=== PATIENT | female | born 1965 | race American Indian/Alaskan Native ===

== ENCOUNTER 2018-08-14 20:25 | Emergency (ER) | payer SELFPAY | END 2018-08-14 21:18 | LOC: ED 20:25 | DX: R05 Cough (principal); Z53.21 Procedure and treatment not carried out due to patient leaving prior to being seen by health care provider ==

== ENCOUNTER 2020-01-24 21:09 | Emergency (ER) | payer SELFPAY ==
[2020-01-24] MEDS ORDERED: ASPIRIN 325 MG TAB PO ONE (21:34)
--- NOTE | 2020-01-24 22:15 | XRay Report ---
CHEST 2 VIEWS INDICATION / CLINICAL INFORMATION: Chest pain and weakness 3 days. COMPARISON: None available. FINDINGS: SUPPORT DEVICES: None. HEART / MEDIASTINUM: Enlarged. LUNGS / PLEURA: No significant pulmonary or pleural abnormality. No pneumothorax. ADDITIONAL FINDINGS: No significant additional findings. IMPRESSION: 1. Cardiomegaly without CHF Signer Name: Moris Retana MD Signed: 01/24/2020 10:11 PM Workstation Name: [id number]
[2020-01-24 22:44] LABS: Basophils # (Auto) 0.1 K/mm3 (0.0-0.1); Eosinophils # (Auto) 0.3 K/mm3 (0.0-0.4); Hematocrit 31.3 % (30.3-42.9); Hemoglobin 10.6 gm/dl (10.1-14.3); Lymphocytes % (Auto) 35.1 % (13.4-35.0); Mean Corpuscular HGB Conc 34 % (30-34); Mean Corpuscular Volume 71 fl (79-97); Monocytes # (Auto) 0.4 K/mm3 (0.0-0.8); Monocytes % (Auto) 7.1 % (0.0-7.3); Platelet Count 239 K/mm3 (140-440); Red Cell Distribution Width 15.5 % (13.2-15.2)
[2020-01-24 23:09] LABS: BUN/Creatinine Ratio 10; Blood Urea Nitrogen 14 mg/dL (7-17); Calcium 9.4 mg/dL (8.4-10.2); Hemolysis Index 2
[2020-01-25] MEDS ORDERED: ASPIRIN 325 MG TAB ONE (01:33)
--- NOTE | 2020-01-25 01:47 | Emergency Department Report ---
ED Chest Pain HPI - General Chief Complaint: Chest Pain Stated Complaint: WEAKNESS Time Seen by Provider: 01/25/20 01:30 Source: patient, EMS Mode of arrival: Ambulatory Limitations: No Limitations - History of Present Illness Initial Comments: 54-year-old female with history of hypertension and diabetes, presents to ED with complaint of headache, elevated blood pressure, chest pain, and abdominal pain. Patient states her abdominal pain began 3 to 4 days ago. States pain is located diffusely, denies any vomiting or diarrhea. Patient states blood pressure has been elevated over the last few days despite taking her usual lisinopril and another medication that she does not know the name of. Patient reports associated headache. Patient also reports chest pain x 3 days. States it is located in the center of her chest, feels like tightness. Patient states pain has been constant. She denies any shortness of breath, fever, cough. MD Complaint: chest pain -: days(s) (3) Onset: during rest Pain Location: substernal Pain Radiation: none Severity: mild Severity scale (0 -10): 3 Quality: tightness Consistency: constant Improves With: nothing Worsens With: nothing re: denies: nausea, vomting, diaphoresis, dyspnea Other Symptoms: denies: cough, fever - Related Data Previous Rx's Medication Instructions Recorded Last Taken Type Diphenoxylate HCl/Atropine 1 each PO BID #8 tablet 08/15/18 Unknown Rx [Lomotil 2.5-0.025 mg Tablet] Ondansetron [Zofran ODT TAB] 8 mg PO Q12HR #14 tab.rapdis 08/15/18 Unknown Rx Naproxen [Naprosyn] 500 mg PO BID #20 tablet 01/25/20 Unknown Rx Nitrofurantoin Dickenson/M-Cryst 100 mg PO Q12HR 7 Days #14 capsule 01/25/20 Unknown Rx [Macrobid CAP] Allergies Allergy/AdvReac Type Severity Reaction Status Date / Time acetaminophen [From [place]] Allergy Rash Verified 01/24/20 21:31 hydrocodone [From [place]] Allergy Rash Verified 01/24/20 21:31 Heart Score - HEART Score History: Slightly suspicious EKG: Non-specific Age: 45-65 Risk factors: 1-2 risk factors Troponin: < normal limit HEART Score: 3 ED Review of Systems ROS: Stated complaint: WEAKNESS Other details as noted in HPI Comment: All other systems reviewed and negative Constitutional: denies: chills, fever Respiratory: denies: cough, shortness of breath Cardiovascular: chest pain Gastrointestinal: abdominal pain. denies: nausea, vomiting, diarrhea Neurological: headache ED Past Medical Hx - Past Medical History Hx Hypertension: Yes Hx Diabetes: Yes - Social History Smoking Status: Never Smoker Substance Use Type: None - Medications Home Medications: Home Medications Medication Instructions Recorded Confirmed Last Taken Type Diphenoxylate HCl/Atropine 1 each PO BID #8 tablet 08/15/18 Unknown Rx [Lomotil 2.5-0.025 mg Tablet] Ondansetron [Zofran ODT TAB] 8 mg PO Q12HR #14 tab.rapdis 08/15/18 Unknown Rx Naproxen [Naprosyn] 500 mg PO BID #20 tablet 01/25/20 Unknown Rx Nitrofurantoin Dickenson/M-Cryst 100 mg PO Q12HR 7 Days #14 capsule 01/25/20 Unknown Rx [Macrobid CAP] ED Physical Exam - General Limitations: No Limitations General appearance: alert, in no apparent distress - Head Head exam: Present: atraumatic, normocephalic - Eye Eye exam: Present: normal appearance, PERRL, EOMI - ENT ENT exam: Present: mucous membranes moist - Neck Neck exam: Present: normal inspection - Respiratory Respiratory exam: Present: normal lung sounds bilaterally. Absent: respiratory distress - Cardiovascular Cardiovascular Exam: Present: regular rate, normal rhythm - GI/Abdominal GI/Abdominal exam: Present: soft, tenderness (Mild diffuse). Absent: distended - Extremities Exam Extremities exam: Present: normal inspection - Neurological Exam Neurological exam: Present: alert, oriented X3, CN II-XII intact. Absent: motor sensory deficit - Psychiatric Psychiatric exam: Present: normal affect, normal mood - Skin Skin exam: Present: warm, dry, intact, normal color ED Course Vital Signs 01/24/20 01/25/20 01/25/20 21:32 00:43 01:15 Temperature 98.3 F 98.1 F Pulse Rate 91 H 62 68 Respiratory 18 16 17 Rate Blood Pressure 178/86 162/79 Blood Pressure 189/82 [Right] O2 Sat by Pulse 98 100 100 Oximetry 01/25/20 01/25/20 01/25/20 01:31 01:45 02:21 Temperature Pulse Rate 61 63 72 Respiratory 11 L 13 24 Rate Blood Pressure 162/79 162/79 162/79 Blood Pressure [Right] O2 Sat by Pulse 97 98 100 Oximetry 01/25/20 01/25/20 01/25/20 02:31 02:45 03:00 Temperature Pulse Rate 65 67 68 Respiratory 12 12 12 Rate Blood Pressure 162/79 180/87 165/90 Blood Pressure [Right] O2 Sat by Pulse 98 99 97 Oximetry ED Medical Decision Making - Lab Data Result diagrams: 01/24/20 22:26 01/24/20 22:26 - EKG Data -: EKG Interpreted by Ok EKG shows normal: sinus rhythm, axis, intervals, QRS complexes Rate: normal - EKG Data Interpretation: other (lateral T wave inversions) - Radiology Data Radiology results: report reviewed, image reviewed - Medical Decision Making 54-year-old female with headache, chest pain, abdominal pain. CT head negative for any acute findings. Patient neurologically intact, A&O x3, with no focal neuro deficits. Blood pressure not extremely elevated. EKG shows some nonspecific findings, with negative troponin x2. Chest x-ray and abdominal films negative. Labs are unremarkable except for UTI on UA. Patient will be discharged at this time with antibiotics. Outpatient follow-up advised. Return precautions given. - Differential Diagnosis UTI, bowel obstruction, ACS, pneumonia, intracranial abnormality Critical care attestation.: If time is entered above; I have spent that time in minutes in the direct care of this critically ill patient, excluding procedure time. ED Disposition Clinical Impression: UTI (urinary tract infection), Acute headache, Chest pain, Hypertension Disposition: TO HOME OR SELFCARE Is pt being admited?: No Condition: Stable Instructions: Chest Pain (ED), Urinary Tract Infection in Women (ED), Acute Headache (ED), Hypertension (ED) Prescriptions: Nitrofurantoin Dickenson/M-Cryst [Macrobid CAP] 100 mg PO Q12HR 7 Days #14 capsule Naproxen [Naprosyn] 500 mg PO BID #20 tablet Referrals: [facility] [place] [Outside] - 3-5 Days BUCKY GARG MD [Staff Physician] - 3-5 Days [facility] [Provider Group] - 3-5 Days Time of Disposition: 03:26
[2020-01-25 02:10] LABS: Alanine Aminotransferase 14 units/L (7-56); Albumin 3.7 g/dL (3.9-5)
[2020-01-25 02:11] LABS: Bilirubin,Direct < 0.2 mg/dL (0-0.2)
--- NOTE | 2020-01-25 02:17 | XRay Report ---
ABDOMEN 1 VIEW(S) INDICATION / CLINICAL INFORMATION: abd pain. COMPARISON: None available. FINDINGS: TUBES / LINES: None. BOWEL GAS PATTERN: No significant abnormality. ADDITIONAL FINDINGS: No significant additional findings. Signer Name: Jimmy Madera MD Signed: 01/25/2020 2:12 AM Workstation Name: [id number]
--- NOTE | 2020-01-25 02:23 | Cat Scan Report ---
CT head/brain wo con INDICATION: Patient complains of a headache. TECHNIQUE: All CT scans at this location are performed using the following dose modulation technique: Automated exposure control. CONTRAST: None. COMPARISON: None available. FINDINGS: The ventricular system is appropriate in size and configuration without midline shift. Nega tive for mass, stroke or hemorrhage. Mild low density at the periventricular white matter is typical of early chronic small vessel ischemi c change. Chronic lacunar infarct is seen at the right basal ganglia and right thalamus. IMPRESSION: 1. Mild chronic small vessel ischemic change. 2. Small chronic lacunar infarcts right basal ganglia. Signer Name: Jimmy Madera MD Signed: 01/25/2020 2:19 AM Workstation Name: [id number]
[2020-01-25 03:04] LABS: Bacteria,Urine 2+ /HPF (Negative); Bilirubin,Urine NEG (Negative); Blood,Urine SM (Negative); Color,Urine Yellow (Yellow); Mucus,Urine 2+ /HPF; Protein,Urine 300 mg/dL mg/dL (Negative); Urobilinogen,Urine < 2.0 mg/dL (<2.0)
[2020-01-25 03:11] VITALS: BP 165/90
== END 2020-01-25 04:07 | disposition home or self-care (01) ==
LOC: ED 21:09
DX: N39.0 Urinary tract infection, site not specified (principal); R51 Headache; R07.9 Chest pain, unspecified; I10 Essential (primary) hypertension; E11.9 Type 2 diabetes mellitus without complications; Z79.899 Other long term (current) drug therapy; Z88.8 Allergy status to other drugs, medicaments and biological substances
CPT/HCPCS: 36415; 70450; 71046; 74018; 80048; 80076; 81001; 83690; 84484; 85025; 93005